=== PATIENT | female | born 1975 | race Caucasian/White ===

== ENCOUNTER → 2017-10-10 | Outpatient (CLI) | payer BC | END | disposition home or self-care (01) | LOC: C.PAPS 09:51 | PROVIDERS: ATTEND Obstetrics & Gynecology | DX: Z01.419 Encounter for gynecological examination (general) (routine) without abnormal findings (principal) ==

== ENCOUNTER → 2017-10-12 | Outpatient (CLI) | payer BC ==
--- NOTE | 2017-10-13 07:33 | MAMMOGRAPHY REPORT ---
BILATERAL DIGITAL DIAGNOSTIC MAMMOGRAM TOMOSYNTHESIS WITH CAD AND TARGETED BILATERAL ULTRASOUND: 09/24 CLINICAL HISTORY: The patient reports bilateral clear spontaneous nipple discharge approximately 4 we eks ago, which lasted 7 days. She had another episode last week which lasted 2 days. She denies any bloody nipple discharge, palpable lumps, or other complaints. TECHNIQUE: Breast tomosynthesis in addition to standard 2D mammography was performed. Current study was also evaluated with a Computer Aided Detection (CAD) system. Bilateral CC and MLO 2-D and tomosy nthesis images and spot magnification bilateral cc and ML views were obtained. COMPARISON: Comparison is made to exams dated: 01/28/2014 mammogram and 02/08/2014 mammogram - [facility]. BREAST COMPOSITION: The tissue of both breasts is extremely dense, which lowers the sensitivity of m ammography. FINDINGS: There are no suspicious masses, calcifications, or areas of architectural distortion noted in either breast. There has been no significant interval change compared to the prior 2013 exam. B ilateral benign appearing calcifications are not significantly changed. Spot magnification views of the subareolar regions bilaterally demonstrate no suspicious masses or calcifications. Targeted ultrasound was performed of bilateral subareolar regions. No suspicious intraductal masses or other suspicious sonographic abnormalities are evident. A few scattered benign cysts were seen du ring the exam, including an anechoic circumscribed 7 x 7 mm simple cyst in the left 12:00 subareolar breast. In the left 5:00 periareolar breast there is also an anechoic benign cyst measuring 14 mm. In the right 12:00 subareolar breast there is an anechoic benign cyst measuring 5 mm. An anechoic be nign simple cyst measuring 3 mm is seen within the right 1:00 periareolar breast, and an anechoic rock ign 8 mm simple cyst is seen within the right 7:00 periareolar breast. No suspicious solid masses we re evident. IMPRESSION: ACR BI-RADS CATEGORY 2: BENIGN, TARGETED ULTRASOUND ACR BI-RADS CATEGORY 2: BENIGN No intraductal mass or other suspicious mammographic or sonographic abnormality to explain bilateral clear nipple discharge. A few small incidental benign simple cysts were noted on ultrasound. There is no mammographic or targeted sonographic evidence of malignancy. Recommend clinical follow-up for bilateral nipple discharge; if the nipple discharge remains suspicious clinically, then consider cons ultation with a surgeon. Also recommend routine bilateral screening mammograms in one year. The patient has been verbally notified of the results. Approximately 10% of breast cancers are not detected with mammography. A negative mammographic report should not delay biopsy if a clinically suggestive mass is present. Danna Hoffman M.D. ah/:10/12/2017 10:37:36 [employer]: Charlene CHU(Raj)(Carol), [facility] letter sent: Normal 1/2 BI-RADS Code: ACR BI-RADS Category 2: Benign Ultrasound BI-RADS: ACR BI-RADS Category 2: Benign
== END | disposition home or self-care (01) ==
LOC: C.MAMM 08:33
PROVIDERS: ATTEND Obstetrics & Gynecology
DX: N64.52 Nipple discharge (principal)

== ENCOUNTER 2017-11-04 16:07 | Emergency (ER) | payer BC ==
[~2017-11-04] VITALS: Ht 167.6 cm; Wt 68.1 kg
[2017-11-04 16:22] VITALS: TEMP 37.6; Ht 167.6 cm; Wt 68.1 kg
--- NOTE | 2017-11-04 17:13 | EMERGENCY ROOM VISIT NOTE ---
ED Visit Note First contact with patient: 16:51 CHIEF COMPLAINT: Cough, coughing up blood HISTORY OF PRESENT ILLNESS: This 42-year-old female patient presents to the emergency department ambulatory, complaining of URI symptoms and cough x 2 days. The patient states they have been experiencing congestion, runny nose, sore throat, cough, chills, since Tuesday. The patient states this morning, she noticed that she was coughing up blood-tinged, yellow-clear sputum while in the shower. She does relay that she was riding horses 3 nights ago and a very sachin ring. She states she was inhaling a lot of dust, and has noted some irritation in her airways since then. She denies any history of coughing up blood. She states yesterday, she did note a fever of 102. She has been taking ibuprofen and Aleve for the fever and symptoms. She has not been taking any other cough or cold medications. They deny any nausea, or vomiting. The patient describes the drainage from the nose as clear. There sinus pressure and pain causing a headache. The patient is a teacher. She did not get a flu shot this year. Denies a rash. REVIEW OF SYSTEMS: A 10 system review of systems was performed with positives and pertinent negatives listed in the history of present illness. All other systems were reviewed and are negative. ALLERGIES: None MEDICATIONS: None PMH: None SOCIAL HISTORY: The patient lives locally with family. She denies drug, alcohol , tobacco use. PHYSICAL EXAM: VITALS: Vitals are noted on the nurse's note and reviewed by myself. Vital signs stable. GENERAL: This is a 42 year old white female, in no acute distress, nondiaphoretic, well-developed well-nourished. SKIN: The skin was without rashes, erythema, edema, or bruising. There is no tenting of the skin. Capillary reflex less than 2 seconds. HEAD: Normocephalic atraumatic. EARS: External auditory canals clear, bilateral tympanic membranes pearly brewster without erythema or effusion bilaterally. EYES: Pupils equal round and reactive to light and accommodation. Conjunctivae without injection, sclerae without icterus. Extraocular movements intact. NOSE: Patent, turbinates without inflammation or erythema. Clear rhinorrhea noted. No sinus tenderness. MOUTH: Mucous membranes moist. Tonsils are not enlarged. Pharynx without erythema or exudate. Uvula midline. Airway patent. Tongue does not deviate. NECK: Supple without nuchal rigidity. No lymphadenopathy. No thyromegaly. Cervical spine is nontender. No JVD. HEART: Regular rate and rhythm without murmurs gallops or rubs. LUNGS: Clear to auscultation bilaterally without wheezes, rales or rhonchi. No dullness to percussion. No retractions or accessory muscle use. MUSCULOSKELETAL: No muscle atrophy, erythema, or edema noted. Full range of motion without joint tenderness in all extremities. No tenderness to palpation. Normal gait. Strength 5/5 throughout. NEURO: Patient was alert and oriented to person place and time. Normal sensation to light and sharp touch. No focal neurological deficits. RADIOLOGY: CHEST 2 VIEWS ROUTINE CLINICAL HISTORY: COUGHING UP BLOOD hemoptysis COMPARISON STUDY: 09/29/2009 FINDINGS: The bones soft tissues and hemidiaphragms are normal. The cardiomediastinal silhouette is normal. The lungs are clear. The pulmonary vasculature is normal. IMPRESSION: Negative chest. The above report was generated using voice recognition software. It may contain grammatical, syntax or spelling errors. Electronically signed by: Ulises Welch M.D. 11/04/2017 5:27 PM Dictated Date/Time: 11/04/2017 5:25 PM EMERGENCY DEPARTMENT COURSE: The patient was seen and evaluated as above. CXR was ordered and performed due to hemoptysis. This was negative for acute process. I suspect irritation from the inhalation of dust earlier this week as the cause of the hemoptysis. The patient was encouraged to follow up with her PCP if no improvement, and return to the emergency department if symptoms worsen for possible further testing. Influenza testing was performed as well due to the patient's symptoms and lack of influenza vaccination. The patient did test positive for influenza A. I did offer the patient Tamiflu, as she is within 48 hours of symptom onset, and the patient declines. Discharge instructions reviewed, and the patient was discharged home in good condition. DIFFERENTIAL DIAGNOSIS: Influenza, hemoptysis, Acute Sinusitis, Acute pharyngitis, URI, Viral pharyngitis, Strep Pharyngitis, Peritonsillar abscess, tonsilitis, malignancy, and others DIAGNOSIS: Influenza A, hemoptysis Current/Historical Medications Scheduled PRN Albuterol Hfa (Ventolin Hfa), 2 PUFFS INH QID PRN for w Benzonatate (Tessalon Perles), 200 MG PO TID PRN for Cough Allergies Coded Allergies: No Known Allergies (Verified , 07/20/13) Uncoded Allergies: RAW WHITE ONIONS (Allergy, Unknown, 12/06/02) Vital Signs Date Time Temp Pulse Resp B/P (MAP) Pulse Ox O2 Delivery O2 Flow Rate FiO2 11/04/17 16:22 100 Room Air 11/04/17 16:22 37.6 92 18 123/82 99 Room Air Laboratory Results Test 11/04/17 14:32 Influenza Type A Antigen POS for Influ A (NEG) Influenza Type B Antigen Neg for Influ B (NEG) Departure Information Impression Primary Impression: Influenza A Additional Impression: Cough with hemoptysis Dispostion Home / Self-Care Condition GOOD Prescriptions Albuterol Hfa (VENTOLIN HFA) 200 Puffs/83908 Mcg Aers 2 PUFFS INH QID Y for w, #1 INHALER Prov: Nery Zapien PA-C 11/04/17 Benzonatate (Tessalon Perles) 200 Mg Cap 200 MG PO TID Y for Cough, #30 CAP Prov: Nery Zapien PA-C 11/04/17 Referrals No Doctor, Assigned (PCP) Patient Instructions ED Flu, My [facility] Additional Instructions You were seen and evaluated in the emergency department today for a influenza. Influenza is a viral infection. As discussed, antibiotics will not treat viral illness. You did also mention coughing up blood. I suspect this is related to airway irritation and dust inhalation. If you notice worsening coughing up blood, or it does not improve within 1 week, return to the ED or follow-up with your PCP for further evaluation. As discussed, Chest X-ray was negative for acute findings. You have been provided with an albuterol inhaler to use for wheezing or difficulty breathing. Use this inhaler 1-2 puffs every 4-6 hours as needed. If you find that your symptoms are not improving with the use of the inhaler, or if you find that you need to use the inhaler longer than 1 week, return to the ED or follow-up with your PCP. You have been given benzonatate (Tessalon Pearles) to be used for coughing. These should be taken 1 capsule up to 3 times per day as needed for coughing. Do not take this medication more than prescribed. You may use this medication in addition to OTC cough medications. For your sore throat, you may use a 1:1 mixture of liquid Benadryl and liquid Maalox. Gargle and spit this mixture. It will help to soothe the throat and provide some relief. Drink warm tea with honey and lemon, as this will also help to soothe the throat. Gargle with salt water frequently. As discussed, you should take OTC Mucinex and/or Sudafed for your symptoms. Please do not exceed the recommended daily dosages. Ibuprofen(Motrin, Advil) may be used for fever or pain. Use 600mg every six hours as needed. Take with food. Avoid using more than 2400mg in a 24 hour period. Do not use 2400mg per day for more than three consecutive days without physician direction. Prolonged inappropriate use can lead to stomach upset or ulcers. You may take Naproxen 1-[address] daily in place of ibuprofen. This medication will help with the swelling in your sinuses. (AND/OR) Acetaminophen(Tylenol) may be used for fever or pain. Use 1000mg every six hours as needed. Avoid using more than 3000mg in a 24 hour period. For congestion, you may use Flonase OTC. You may want to consider zinc, echinacea, and vitamin C to help boost your immunity. Please get plenty of rest and drink plenty of fluids. Please return or follow-up with your PCP in 1 week if you are not experiencing any improvement in your symptoms. No work until you are at least fever-free for 24 hours. Return to the emergency department for worsening coughing up blood, difficulty breathing, chest pain, worsening symptoms, or for other concerns. Problem Qualifiers
[2017-11-04 17:26] LABS: INFLUENZA B ANTIGEN Neg for Influ B (NEG)
--- NOTE | 2017-11-04 17:28 | DIAGNOSTIC IMAGING REPORT ---
CHEST 2 VIEWS ROUTINE CLINICAL HISTORY: COUGHING UP BLOOD hemoptysis COMPARISON STUDY: 09/29/2009 FINDINGS: The bones soft tissues and hemidiaphragms are normal. The cardiomediastinal silhouette is normal. The lungs are clear. The pulmonary vasculature is normal. IMPRESSION: Negative chest. The above report was generated using voice recognition software. It may contain grammatical, syntax or spelling errors. Electronically signed by: Ulises Welch M.D. 11/04/2017 5:27 PM Dictated Date/Time: 11/04/2017 5:25 PM
[2017-11-04] MEDS ORDERED: VNTHFA/IN INH (17:38)
[2017-11-04] MEDS ORDERED: BENZ1CAP90 PO (17:38)
[2017-11-04 18:04] VITALS: BP 115/78; PULSE 88; O2SAT 99
== END 2017-11-04 18:04 | disposition home or self-care (01) ==
LOC: C.EDB 16:08 → C.EDD 18:04
DX: J09.X2 Influenza due to identified novel influenza A virus with other respiratory manifestations (principal); R04.2 Hemoptysis